=== PATIENT | male | born 2005 | race Caucasian/White ===

== ENCOUNTER 2023-10-25 12:13 | Emergency (ER) | payer OTHER ==
[~2023-10-25] VITALS: Ht 182.9 cm; Wt 77.1 kg
[~2023-10-25 12:13] MED LIST: CEPH500 PO; MUPIROCIN1 G1 TOP; SULTRIDS PO
[2023-10-25 12:28] VITALS: BP 126/73
[2023-10-25] MEDS ORDERED: CATAPRES0.1 MG (12:35)
[2023-10-25] MEDS ORDERED: Buspirone HCl15 MG (12:35)
[2023-10-25] MEDS ORDERED: GUANFACINE HCL2 M2 (12:35)
== END 2023-10-25 14:09 | disposition home or self-care (01) ==
LOC: ER 12:13
DX: M54.2 Cervicalgia (principal); M25.511 Pain in right shoulder; M54.6 Pain in thoracic spine; V49.9XXA Car occupant (driver) (passenger) injured in unspecified traffic accident, initial encounter; F17.210 Nicotine dependence, cigarettes, uncomplicated
CPT/HCPCS: 71046; 72070; 99283-25